=== PATIENT | male | born 1960 | race Caucasian/White ===

== ENCOUNTER 2016-12-03 08:01 | Emergency (ER) | payer MEDICAID ==
[~2016-12-03] VITALS: Ht 175.3 cm; Wt 97.0 kg
[~2016-12-03 08:01] MED LIST: HYDR-906 PO; NAPR-260 PO; NAPR-688 PO; ONDA4TAB14 PO; TAMS-14 PO; TRAM50TA2 PO
[2016-12-03 08:03] VITALS: Ht 175.3 cm; Wt 97.0 kg
[2016-12-03] MEDS ORDERED: KETOROLAC 15 MG INJ IM STA (08:50)
[2016-12-03] MEDS ORDERED: NAPR-260 PO (09:02)
--- NOTE | 2016-12-03 09:12 | ERD ---
ER Documentation Chief Complaint Date/Time DATE: 12/03/16 TIME: 09:04 Chief Complaint LEFT KNEE PAIN/INJURY HPI Patient is a 55-year-old male who presents to the ED with left knee pain. He denies any injury or triggering factor. He states that he is not on his knees a great amount. He states that he does have a past medical history of arthritis. He is not taking any medication for his symptoms. He denies any radiation of pain. Denies numbness or tingling. Denies pain in his calves. Denies pain above or below his knee. He states he is able to ambulate but with extreme flexion and extension he has pain. Denies chest pain, cough, shortness of breath or difficulty breathing. Denies fever or chills. No other complaints. ROS All systems reviewed and are negative except as per history of present illness. Medications Home Meds Active Scripts Naproxen* (Naprosyn*) 500 Mg Tablet, 500 MG PO BID Y for PAIN AND/OR INFLAMMATION, #30 TAB Prov:NEDA ABBASI PA-C 12/03/16 Naproxen* (Naprosyn*) 500 Mg Tablet, 500 MG PO BID Y for PAIN AND/OR INFLAMMATION, #30 TAB Prov:MIMI KAN PA-C 05/27/16 Tramadol HCl (Tramadol HCl) 50 Mg Tablet, 50 MG PO Q4 Y for PAIN, #20 TAB Prov:MIMI KAN PA-C 05/27/16 Tamsulosin Hcl* (Flomax*) 0.4 Mg Cap.er.24h, 0.4 MG PO DAILY, #14 CAP Prov:TRVEER HEAD DO 04/24/16 Ondansetron (Ondansetron Odt) 4 Mg Tab.rapdis, 4 MG PO Q6H Y for NAUSEA AND/OR VOMITING, #10 TAB Prov:TREVER HEAD DO 04/24/16 Naproxen* (Naproxen*) 500 Mg Tablet, 500 MG PO BID Y for PAIN, #20 TAB Prov:TREVER HEAD DO 04/24/16 Hydrocodone/Acetaminophen ([place] 5-325 Tablet) 1 Each Tablet, 1 EACH PO Q6, #14 TAB Prov:TREVER HEAD DO 04/24/16 Allergies Allergies: Coded Allergies: No Known Allergy (Unverified , 05/27/16) PMhx/Soc Medical and Surgical Hx: pt denies Medical Hx, pt denies Surgical Hx History of Surgery: No Anesthesia Reaction: No Hx Neurological Disorder: No Hx Respiratory Disorders: No Hx Cardiac Disorders: No Hx Psychiatric Problems: No Hx Miscellaneous Medical Probl: Yes (Arthritis) Hx Alcohol Use: No Hx Substance Use: No Hx Tobacco Use: No Smoking Status: Never smoker FmHx Family History: No coronary disease, No diabetes, No other Physical Exam Vitals Vital Signs Date Time Temp Pulse Resp B/P Pulse Ox O2 Delivery O2 Flow Rate FiO2 12/03/16 08:03 98.7 79 19 134/79 95 Physical Exam GENERAL: Well-developed, well-nourished male. Appears in no acute distress. LUNG: Clear to auscultation bilaterally. No rhonchi, wheezing, rales or coarse breath sounds. HEART: Regular rate and rhythm. No murmurs, rubs or gallops. Extremities: Equal pulses bilaterally. No peripheral clubbing, cyanosis or edema. No unilateral leg swelling. anterior mobile knee fluid with no erythema, warmth or induration or fluctuance. no pain above or below knee. pain at extreme flexion/extension. NEUROLOGIC: Alert and oriented. Moving all four extremities. 5/5 strength in all extremities. Normal speech. Steady gait. SKIN: Normal color. Warm and dry. No rashes or lesions. Capillary refill < 2 seconds Results 24 hrs Current Medications Medications (Trade) Dose Ordered Sig/Brenda Route PRN Reason Start Time Stop Time Status Last Admin Dose Admin Ketorolac Tromethamine (Toradol) 15 mg ONCE STAT IM 12/03/16 08:50 12/03/16 08:51 DC 12/03/16 08:58 Procedures/MDM ER COURSE: I kept the patient and/or family informed of laboratory and diagnostic imaging results throughout the emergency room course. MEDICAL DECISION MAKING: This is a 55 year old male who presents with left knee pain x 1 week. Vital signs were reviewed. Patient is afebrile. Patient is not hypoxic. Patient is not toxic or ill-appearing. Patient has what is likely prepatellar bursitis. I consulted with Dr. Andersen regarding this patient who came to examine patient at bedside and agrees that patient can be treated outpatiently.. I do not think any removal of fluids here in the ED is necessary as this can cause an increase in infection. Low suspicion for dislocation, fracture, septic joint, compartment syndrome, osteomyelitis, avascular necrosis, DVT, Achilles tendon rupture, cellulitis. At this time, unable to rule out any tendon and ligament injuries. Patient was given an Jesse wrap. Neurovascularly intact post Jesse wrap placement. DISCHARGE: At this time, patient is stable for discharge and outpatient management with no new complaints during the ER course. Patient was sent home with Jesse susanap, Misrosyn and to follow-up with orthopedics in 1 week.. Patient will be discharged home with instructions to recheck for new or worsening symptoms such as fever, nausea, weakness, LOC and to follow up with primary care in the next 1 -2 days. Patient was advised to return to the ER for any new or worsening symptoms. Plan was discussed and patient and/or family understands and agrees. Home instructions were given. Departure Diagnosis: Primary Impression: Prepatellar bursitis Laterality: left Qualified Code: M70.42 - Prepatellar bursitis of left knee Condition: Stable Patient Instructions: What Is Bursitis? Referrals: [facility] 7 a.m.- 11 p.m. Every Day of the Week NO APPOINTMENT OR AUTHORIZATION NEEDED Additional Instructions: Llame al doctor MAANA y farrukh shady RYAN PARA DENTRO DE 1-2 MACDONALD.Dgale a la secretaria que nosotros le instruimos hacer esta ryan.Avise o llame si mendes condicin se empeora antes de la ryan. Regresa aqui si peor o no mejor. NEDA ABBASI PA-C December 03, 2016 09:12
[2016-12-03 09:33] VITALS: BP 139/64; PULSE 65; RESP 20; TEMP 97.8
== END 2016-12-03 09:34 | disposition home or self-care (01) ==
LOC: FTE 08:01
DX: M70.42 Prepatellar bursitis, left knee (principal); Y93.9 Activity, unspecified
CPT/HCPCS: 96372; J1885; Z7502

== ENCOUNTER 2018-06-25 11:37 | Emergency (ER) | END 2018-06-25 13:13 | disposition left against medical advice (07) ==